=== PATIENT | male | born 1945 | race Caucasian/White ===

== ENCOUNTER → 2016-08-19 | Outpatient (CLI) | payer MEDICARE ==
[~2016-08-19] MED LIST: ASPIR-TRIN325 MG PO; FENOFIBRATE145 MG PO; ISOSORBIDE MONO30 MG PO; MONOPRIL TAB 1010 MG PO; PROTONIX40 MG PO; SIMVASTATIN40 MG PO; TOPROL XL 50 MG50 MG PO; VITAMIN D250000 UNIT PO
[2016-08-19 08:28] LABS: HEMOGLOBIN 10.8 gm/dl (14.0-17.5); RED BLOOD COUNT 3.97 M/UL (4.20-5.50); WHITE BLOOD COUNT 4.1 K/UL (4.5-11.0)
[2016-08-19 08:46] LABS: BUN/CREATININE RATIO 13 (0-10)
== END ==
LOC: LAB 07:47
PROVIDERS: Family Medicine
DX: R53.83 Other fatigue (principal); I10 Essential (primary) hypertension; E78.5 Hyperlipidemia, unspecified; E55.9 Vitamin D deficiency, unspecified
CPT/HCPCS: 36415; 80053; 80061; 84439; 84443; 85027

== ENCOUNTER → 2016-09-11 | Outpatient (CLI) | payer MEDICARE ==
[2016-09-11 10:30] LABS: HEMOGLOBIN 10.5 gm/dl (14.0-17.5); RED BLOOD COUNT 3.83 M/UL (4.20-5.50); WHITE BLOOD COUNT 4.3 K/UL (4.5-11.0)
== END ==
LOC: LAB 08:26
PROVIDERS: Family Medicine
DX: D64.9 Anemia, unspecified (principal); E53.8 Deficiency of other specified B group vitamins
CPT/HCPCS: 36415; 82607; 82728; 82746; 83540; 83550; 85025

== ENCOUNTER → 2016-10-05 | Outpatient (CLI) | payer MEDICARE | LOC: LAB 10:43 | DX: C61 Malignant neoplasm of prostate (principal) | CPT/HCPCS: 36415; 84153 ==

== ENCOUNTER → 2016-10-15 | Outpatient (CLI) | payer MEDICARE, SELFPAY | LOC: HEART 5 08-04 14:30 | DX: I35.0 Nonrheumatic aortic (valve) stenosis (principal); I10 Essential (primary) hypertension; R06.00 Dyspnea, unspecified; I08.1 Rheumatic disorders of both mitral and tricuspid valves; I34.0 Nonrheumatic mitral (valve) insufficiency | CPT/HCPCS: 93306 ==

== ENCOUNTER → 2020-11-08 | Outpatient (CLI) | payer MEDICARE | LOC: ECHO 10:47 | DX: I35.0 Nonrheumatic aortic (valve) stenosis (principal) | CPT/HCPCS: ECHO; 93306 ==